=== PATIENT | male | born 2000 | race Caucasian/White ===

== ENCOUNTER 2021-01-26 18:28 | Emergency (ER) | payer BC ==
[2021-01-26 18:55] LABS: Bilirubin Neg (Negative); Blood, Urine Negative (Negative); Clarity Clear (Clear); Glucose, Urine (Dipstick) Normal (Negative); Ketone, Urine Negative (Negative); Leukocyte 100 (Negative); Nitrite Negative (Negative); Protein, Urine (Dipstick) Negative (Neg-Trace); Specific Gravity, Urine 1.005 (1.002-1.036); Urobilinogen Normal mg/dL (Less than 2)
[2021-01-26 19:02] LABS: Bacteria/HPF Rare-Few HPF (None Seen); RBC/HPF None Seen HPF (0-3); Squamous Epithelial 0-3 HPF (0-3); WBC/HPF 0-3 HPF (0-3)
== END 2021-01-26 20:38 | disposition home or self-care (01) ==
LOC: CSHERS 18:28
DX: N45.1 Epididymitis (principal)
CPT/HCPCS: 76870; 81003; 81015; 93976